=== PATIENT | female | born 1985 | race Two or more races ===

== ENCOUNTER 2024-10-05 06:16 | Emergency (ER) | payer MEDICAID, SELFPAY ==
[2024-10-05 06:18] VITALS: BMI 47.7
[2024-10-05 06:28] VITALS: BP 159/97; PULSE 97; RESP 18; TEMP 36.7; O2SAT 97
[2024-10-05] MEDS: DEXAMETHASONE SOD PHOS INJ 10 MG/ML VIAL IM (06:51)
[2024-10-05] MEDS: FAMOTIDINE 20 MG TABLET 40 MG PO (06:51)
[2024-10-05] MEDS: DiphenhydrAMINE 25 MG CAPSULE 50 MG PO (06:51)
--- NOTE | 2024-10-05 07:25 | PD.EDSKIN ---
ED Skin Abcess FB-RME/HPI General Chief complaint: Skin/Abscess/Foreign Body Stated complaint: RASH Time Seen by Provider: 10/05/24 06:20 Arrival date/time: 10/05/24 06:16 39-year-old female presents to the emergency department today for complaints of rash patient report symptoms ongoing since yesterday patient reports rash is quite itchy Limitations: no limitations Related Data Previous Rx's ?Medication ?Instructions ?Recorded acetaminophen 300 mg-codeine 30 mg 1 tab PO Q8H PRN pain #14 tabs 08/09/23 tablet acetaminophen 500 mg tablet 500 mg PO QID PRN fever or pain 08/09/23 #20 tabs docusate sodium 100 mg capsule 100 mg PO BID #30 caps 08/09/23 (Colace) doxycycline monohydrate 100 mg 100 mg PO BID #30 caps 08/09/23 capsule ibuprofen 800 mg tablet 800 mg PO Q8H PRN pain #30 tabs 08/09/23 metronidazole 500 mg tablet 500 mg PO Q12H #30 tabs 08/09/23 diphenhydramine HCl 25 mg capsule 25 mg PO Q8H PRN allergic symptoms 10/05/24 (Benadryl) #30 caps prednisone 10 mg tablet 30 mg (3 x 10 mg) PO BID 3 days 10/05/24 #18 tabs Allergies Allergy/AdvReac Type Severity Reaction Status Date / Time No Known Allergies Allergy Verified 10/05/24 06:24 Review of Systems Review of Systems Systems Reviewed: All systems reviewed, normal except as documented Constitutional Constitutional: Reports system reviewed and no additional complaints, except as documented, Denies fever(s) and Denies headache(s) Eyes Eyes: Reports system reviewed and no additional complaints, except as documented and Denies blurry vision ENT Ears, Nose, Mouth, and Throat: Reports system reviewed and no additional complaints, except as documented, Denies headache(s), Denies nasal congestion and Denies nasal discharge Cardiovascular Cardiovascular: Reports system reviewed and no additional complaints, except as documented, Denies chest pain and Denies dyspnea Respiratory Respiratory: Reports system reviewed and no additional complaints, except as documented, Denies chest congestion, Denies cough and Denies dyspnea Gastrointestinal Gastrointestinal: Reports system reviewed and no additional complaints, except as documented and Denies abdominal pain Integumentary/Breasts Skin/Breast: Reports system reviewed and no additional complaints, except as documented, Reports pruritus and Reports rash Neurologic Neurologic: Reports system reviewed and no additional complaints, except as documented, Reports as per HPI and Denies headache(s) Past Medical History Past Medical History NEUROLOGIC: Negative Neurological Disorders or Seizures CARDIAC: Negative Cardiac Disorders or Congestive Heart Failure RESPIRATORY: Negative Chronic Obstructive Pulmonary Disease (COPD) GASTROINTESTINAL: Positive Gastrointestinal Disorders and Obesity; Negative Hepatitis GENITOURINARY: Negative Genitourinary Disorders or Renal Disease REPRODUCTIVE: Positive Previous Pregnancies (3) MUSCULOSKELETAL: Negative Musculoskeletal Disorders ENDOCRINE: Negative Endocrine Disorders, Diabetes Mellitus Type 1 or Diabetes Mellitus Type 2 HEMATOLOGIC: Negative Blood Disorders OTHER HISTORY: Positive Hospitalization (c section), Blood Transfusions and Chicken Pox; Negative Autoimmune Disease, Shingles, Blood Transfusion Reaction, Anesthesia Reactions or Cancer Family History FAMILY HISTORY: Negative Family Psychiatric Problems, Family Respiratory Disorders, Family Cardiac Disorders, Family Gastrointestinal Problems, Family Cancer, Family Surgery or Family Anesthesia Reaction Surgical History SURGICAL: Positive Tubal Ligation and Section (x3) Social History SMOKING STATUS: Never smoker ED Exam General Limitations: Present no limitations General appearance: Present alert and in no apparent distress Head Head exam: Present atraumatic Eye Eye exam: Present normal appearance, PERRL and EOMI ENT ENT exam: Present normal exam, normal oropharynx and mucous membranes moist Neck Neck exam: Present normal inspection, full ROM and trachea midline Chest Chest inspection: Present normal inspection and symmetric chest wall rise Respiratory Respiratory exam: Present normal lung sounds bilaterally Cardiovascular Cardiovascular exam: Present regular rate, normal rhythm and normal heart sounds Abdominal Exam Abdominal exam: Present soft and normal bowel sounds Extremities Exam Extremities exam: Present normal inspection and full ROM Back Exam Back exam: Present normal inspection and full ROM Neurological Exam Neurological exam: Present alert, oriented X3, CN II-XII intact, normal gait and reflexes normal; Absent motor sensory deficit Psychiatric Psychiatric exam: Present normal affect and normal mood Skin Skin exam: Present warm, dry and rash Course Quality Measures none Orders Category Date Time Status Dexamethasone Inj [Decadron Inj] Med 10/05/24 06:34 Discontinued 10 mg IM X1 ONE DiphenhydrAMINE [Benadryl] Med 10/05/24 06:34 Discontinued 50 mg PO X1 ONE Famotidine [Pepcid] Med 10/05/24 06:34 Discontinued 40 mg PO X1 ONE Vital Signs Vital signs: Vital Signs Temperature 98.0 F 10/05/24 06:28 Pulse Rate 97 10/05/24 06:28 Respiratory Rate 18 10/05/24 06:28 Blood Pressure 159/97 H 10/05/24 06:28 Pulse Oximetry (%) 97 10/05/24 06:28 Oxygen Delivery Method Room Air 10/05/24 06:28 O2 saturation 97% on room air within normal limits Skin / Abscess / Foreign Body MDM Narrative MDM Narrative:: 39-year-old female presents to the emergency department today for complaints of rash patient report symptoms ongoing since yesterday patient reports rash is quite itchy On exam patient has hives rash is itchy in nature On exam patient has no evidence of anaphylaxis Patient medicated here discharged home with meds At time of discharge symptoms have improved Patient discharged home in no distress to follow-up with primary care doctor in the next 24 to 48 hours and for any worsening symptoms to return to the ER immediately Patient data External records reviewed:: [facility] previous records Clinical information provided by:: patient Social determinants that could affect healthcare access:: none Patient has the following chronic illnesses:: None How is presenting disease/condition affected by chronic disease/condition?: no chronic disease Evaluation data The following diagnostics were reviewed and interpreted by me:: other (specify) (N/A) Lab and/or radiology exams considered but not ordered:: Consider not ordered Interpretation Summary: N/A Medications / Prescriptions Medications or Prescriptions considered but not ordered:: Given Medication administrations:: Medication Administration History Discontinued Medications Dexamethasone Sodium Phosphate (Dexamethasone Sod Phos Inj 10 Mg/Ml Vial) 10 mg IM X1 ONE Stop: 10/05/24 06:35 Last Admin: 10/05/24 06:51 Dose: 10 mg Documented By: FARIDEH Diphenhydramine HCl (Diphenhydramine 25 Mg Capsule) 50 mg PO X1 ONE Stop: 10/05/24 06:35 Last Admin: 10/05/24 06:51 Dose: 50 mg Documented By: FARIDEH Famotidine (Famotidine 20 Mg Tablet) 40 mg PO X1 ONE Stop: 10/05/24 06:35 Last Admin: 10/05/24 06:51 Dose: 40 mg Documented By: FARIDEH Given Consultations Consultation(s) initiated? (list below): No Diagnosis Skin/Abscess Differential Diagnosis: abscess of skin or subcutaneous tissue and cellulitis Most likely diagnosis given after review of the tests above:: Rash Admission Indicated Admission indicated?: not indicated Admission Request Was there a request for admission?: No Disposition Plan Disposition Plan: Discharge Discharge Attestation Discharge Attestation: The patient and all family members were given an opportunity to ask questions and understood the discharge instructions. Discharge instructions specifically effects, indications for sooner follow up or return to the emergency department, and the expected course of current diagnosis. Patient condition: Stable Discharge Plan Plan Patient Disposition: HOME (Self Care) Discharge Disposition comment: Stable Prescriptions/Referrals Prescriptions/Med Rec: New prednisone 10 mg tablet 30 mg PO BID 3 Days Qty: 18 0RF diphenhydramine HCl [Benadryl] 25 mg capsule 25 mg PO Q8H PRN (Reason: allergic symptoms) Qty: 30 0RF No Action ibuprofen 800 mg tablet 800 mg PO Q8H PRN (Reason: pain) Qty: 30 0RF acetaminophen-codeine 300-30 mg tablet 1 tab PO Q8H PRN (Reason: pain) Qty: 14 0RF metronidazole 500 mg tablet 500 mg PO Q12H Qty: 30 0RF docusate sodium [Colace] 100 mg capsule 100 mg PO BID Qty: 30 0RF doxycycline monohydrate 100 mg capsule 100 mg PO BID Qty: 30 0RF acetaminophen 500 mg tablet 500 mg PO QID PRN (Reason: fever or pain) Qty: 20 0RF Referrals: Joey Khan MD [Primary Care Provider] - 10/07/24 Problem List Clinical Impression: Urticaria Patient/Caregiver Discharge Instructions Education Materials: ED Hives (Adult) Additional Instructions: Please follow up with your primary care doctor in the next 24-48hrs for any worsening symptoms return here immediately Print Language: [place] Stand Alone Forms: Maddison Award Info., Work/School Release, Patient Portal Info Letter PA/RANULFO Supervising Physician BENJA/RANULFO Supervising Physician: Dr weinstein
== END 2024-10-05 07:38 | disposition home or self-care (01) ==
PROVIDERS: Emergency Provider Family Medicine; PCP Family Medicine
DX: L50.9 Urticaria, unspecified (principal)
CPT/HCPCS: 96372; 99283; J1100; A9270

== ENCOUNTER 2024-10-06 13:39 | Emergency (ER) | payer MEDICAID, SELFPAY ==
[2024-10-06 13:40] VITALS: BMI 44.8
[2024-10-06 13:46] VITALS: BP 138/86; PULSE 116; RESP 20; TEMP 36.8; O2SAT 97
[2024-10-06] MEDS: DEXAMETHASONE SOD PHOS INJ 10 MG/ML VIAL IM (14:04)
[2024-10-06] MEDS: DiphenhydrAMINE INJ 50 MG/ML VIAL IM (14:04)
[2024-10-06] MEDS: FAMOTIDINE 20 MG TABLET 40 MG PO (14:04)
--- NOTE | 2024-10-06 15:18 | EDNOTE_ITS ---
ED Allergic Reaction RME/HPI General Chief complaint: Allergic Reaction Stated complaint: ALLERGIC REACTION SEEN YESTERDAY Time Seen by Provider: 10/06/24 13:42 Arrival date/time: 10/06/24 13:39 39-year-old female presents emergency department today for complaint of allergic reaction patient was seen yesterday by myself reports that her rash went away after she was treated here but then symptoms came back again Limitations: no limitations Related Data Previous Rx's ?Medication ?Instructions ?Recorded acetaminophen 300 mg-codeine 30 mg 1 tab PO Q8H PRN pa in #14 tabs 08/09/23 tablet acetaminophen 500 mg tablet 500 mg PO QID PRN fever or pain 08/09/23 #20 tabs docusate sodium 100 mg capsule 100 mg PO BID #30 caps 08/09/23 (Colace) doxycycline monohydrate 100 mg 100 mg PO BID #30 caps 08/09/23 capsule ibuprofen 800 mg tablet 800 mg PO Q8H PRN pain #30 t abs 08/09/23 metronidazole 500 mg tablet 500 mg PO Q12H #30 tabs diphenhydramine HCl 25 mg capsule 25 mg PO Q8H PRN all ergic symptoms 10/05/24 (Benadryl) #30 caps prednisone 10 mg tablet 30 mg (3 x 10 mg) PO BID 3 d ays 10/05/24 #18 tabs Allergies Allergy/AdvReac Type Severity Reaction Status Date / Time No Known Allergies Allergy Verified 10/06/24 13:40 Review of Systems Review of Systems Systems Reviewed: All systems reviewed, normal except as documented Constitutional Constitutional: Reports system reviewed and no additional complaints, except as documented, Denies fever(s) and Denies headache(s) Eyes Eyes: Reports system reviewed and no additional complaints, except as documented and Denies blurry vision ENT Ears, Nose, Mouth, and Throat: Reports system reviewed and no additional complaints, except as documented, Denies headache(s), Denies nasal congestion and Denies nasal discharge Cardiovascular Cardiovascular: Reports system reviewed and no additional complaints, except as documented, Denies chest pain and Denies dyspnea Respiratory Respiratory: Reports system reviewed and no additional complaints, except as documented, Denies chest congestion, Denies cough and Denies dyspnea Gastrointestinal Gastrointestinal: Reports system reviewed and no additional complaints, except as documented and Denies abdominal pain Integumentary/Breasts Skin/Breast: Reports system reviewed and no additional complaints, except as documented, Reports erythema, Reports pruritus and Reports rash Neurologic Neurologic: Reports system reviewed and no additional complaints, except as docu mented, Reports as per HPI and Denies headache(s) Past Medical History Past Medical History NEUROLOGIC: Negative Neurological Disorders or Seizures CARDIAC: Negative Cardiac Disorders or Congestive Heart Failure RESPIRATORY: Negative Chronic Obstructive Pulmonary Disease (COPD) GASTROINTESTINAL: Positive Gastrointestinal Disorders and Obesity; Negative Hepatitis GENITOURINARY: Negative Genitourinary Disorders or Renal Disease REPRODUCTIVE: Positive Previous Pregnancies (3) MUSCULOSKELETAL: Negative Musculoskeletal Disorders ENDOCRINE: Negative Endocrine Disorders, Diabetes Mellitus Type 1 or Diabetes Mellitus Type 2 HEMATOLOGIC: Negative Blood Disorders OTHER HISTORY: Positive Hospitalization (c section), Blood Transfusions and Chicken Pox; Negative Autoimmune Disease, Shingles, Blood Transfusion Reaction, Anesthesia Reactions or Cancer Family History FAMILY HISTORY: Negative Family Psychiatric Problems, Family Respiratory Disorders, Family Cardiac Disorders, Family Gastrointestinal Problems, Family Cancer, Family Surgery or Family Anesthesia Reaction Surgical History SURGICAL: Positive Tubal Ligation and Section (x3) Social History SMOKING STATUS: Never smoker ED Exam General Limitations: Present no limitations General appearance: Present alert and in no apparent distress Head Head exam: Present atraumatic, normocephalic and normal inspection Eye Eye exam: Present normal appearance, PERRL and EOMI; Absent conjunctival injection ENT ENT exam: Present normal exam, normal oropharynx and mucous membranes moist Neck Neck exam: Present normal inspection, full ROM and trachea midline Chest Chest inspection: Present normal inspection and symmetric chest wall rise Respiratory Respiratory exam: Present normal lung sounds bilaterally; Absent respiratory distress Cardiovascular Cardiovascular exam: Present regular rate, normal rhythm and normal heart sounds Abdominal Exam Abdominal exam: Present soft and normal bowel sounds; Absent distention, tende rness, guarding, rebound or rigidity Extremities Exam Extremities exam: Present normal inspection and full ROM Back Exam Back exam: Present normal inspection and full ROM Neurological Exam Neurological exam: Present alert, oriented X3, CN II-XII intact, normal gait and reflexes normal; Absent motor sensory deficit Psychiatric Psychiatric exam: Present normal affect and normal mood Skin Skin exam: Present warm, dry, intact and normal color; Absent rash Course Quality Measures none Orders Category Date Time Status Dexamethasone Inj [Decadron Inj] Med 10/06/24 13:51 Discontinued 10 mg IM X1 ONE DiphenhydrAMINE INJ [Benadryl Inj] Med 10/06/24 13:51 Discontinued 50 mg IM X1 ONE Famotidine [Pepcid] Med 10/06/24 13:51 Discontinued 40 mg PO X1 ONE Vital Signs Vital signs: Vital Signs Temperature 98.3 F 10/06/24 13:46 Pulse Rate 116 H 10/06/24 13:46 Respiratory Rate 20 10/06/24 13:46 Blood Pressure 138/86 H 10/06/24 13:46 Pulse Oximetry (%) 97 10/06/24 13:46 Oxygen Delivery Method Room Air 10/06/24 13:46 O2 saturation 97% room air within normal limits Allergic Reaction MDM Narrative MDM Narrative:: 39-year-old female presents emergency department today for complaint of allergic reaction patient was seen yesterday by myself reports that her rash went away after she was treated here but then symptoms came back again On exam patient well-appearing patient does not appear ill or toxic in no acute distress Patient discharged home in no distress to follow-up with primary care doctor in the next 24 to 48 hours and for any worsening symptoms to return to the ER immediately Patient data External records reviewed:: [facility] previous records Clinical information provided by:: patient Social determinants that could affect healthcare access:: none Patient has the following chronic illnesses:: None How is presenting disease/condition affected by chronic disease/condition?: no chronic disease Evaluation data The following diagnostics were reviewed and interpreted by me:: other (specify) (N/A) Lab and/or radiology exams considered but not ordered:: N/A Interpretation Summary: Consider not ordered Medications / Prescriptions Medications or Prescriptions considered but not ordered:: Given Medication administrations:: Medication Administration History Discontinued Medications Dexamethasone Sodium Phosphate (Dexamethasone Sod Phos Inj 10 Mg/Ml Vial) 10 mg IM X1 ONE Stop: 10/06/24 13:52 Last Admin: 10/06/24 14:04 Dose: 10 mg Documented By: MALENA Diphenhydramine HCl (Diphenhydramine Inj 50 Mg/Ml Vial) 50 mg IM X1 ONE Stop: 10/06/24 13:52 Last Admin: 10/06/24 14:04 Dose: 50 mg Documented By: MALENA Famotidine (Famotidine 20 Mg Tablet) 40 mg PO X1 ONE Stop: 10/06/24 13:52 Last Admin: 10/06/24 14:04 Dose: 40 mg Documented By: KF Given Consultations Consultation(s) initiated? (list below): No Diagnosis Differential Diagnosis allergic reaction: anaphylaxis, allergic reaction and angioedema Most likely diagnosis given after review of the tests above:: Allergic reaction Admission Indicated Admission indicated?: not indicated Admission Request Was there a request for admission?: No Disposition Plan Disposition Plan: Discharge Discharge Attestation Discharge Attestation: The patient and all family members were given an opportunity to ask questions and understood the discharge instructions. Discharge instructions specifically effects, indications for sooner follow up or return to the emergency department, and the expected course of current diagnosis. Patient condition: Stable Discharge Plan Plan Patient Disposition: HOME (Self Care) Discharge Disposition comment: Stable Prescriptions/Referrals Prescriptions/Med Rec: No Action ibuprofen 800 mg tablet 800 mg PO Q8H PRN (Reason: pain) Qty: 30 0RF acetaminophen-codeine 300-30 mg tablet 1 tab PO Q8H PRN (Reason: pain) Qty: 14 0RF metronidazole 500 mg tablet 500 mg PO Q12H Qty: 30 0RF docusate sodium [Colace] 100 mg capsule 100 mg PO BID Qty: 30 0RF doxycycline monohydrate 100 mg capsule 100 mg PO BID Qty: 30 0RF acetaminophen 500 mg tablet 500 mg PO QID PRN (Reason: fever or pain) Qty: 20 0RF prednisone 10 mg tablet 30 mg PO BID 3 Days Qty: 18 0RF diphenhydramine HCl [Benadryl] 25 mg capsule 25 mg PO Q8H PRN (Reason: allergic symptoms) Qty: 30 0RF Referrals: Joey Khan MD [Primary Care Provider] - In 1 week Problem List Clinical Impression: Urticaria Patient/Caregiver Discharge Instructions Education Materials: ED Hives (Adult) Additional Instructions: Please continue to take your medication as prescribed for worsening symptoms or concerns return to the ER immediately Print Language: Eritrean Stand Alone Forms: Maddison Award Info., Patient Portal Info Letter PA/INTRAOPERATIVE NEURO TECH Supervising Physician PA/INTRAOPERATIVE NEURO TECH Supervising Physician: Dr. weinstein
== END 2024-10-06 15:27 | disposition home or self-care (01) ==
PROVIDERS: Emergency Provider Family Medicine; PCP Family Medicine
DX: L50.9 Urticaria, unspecified (principal)
CPT/HCPCS: 96372; 99283; J1100; J1200; A9270